=== PATIENT | female | born 1980 | race Caucasian/White ===

== ENCOUNTER → 2024-08-22 11:09 | Outpatient (REF) | payer BC, SELFPAY | LOC: WDC 11:09 | PROVIDERS: ATTENDING PHYSICIAN Advanced Practice Midwife; FAMILY PHYSICIAN Nurse Practitioner Adult Health | DX: Z12.31 Encounter for screening mammogram for malignant neoplasm of breast (principal) | CPT/HCPCS: 77063; 77067 ==

== ENCOUNTER → 2025-08-24 13:38 | Outpatient (REF) | payer BC, SELFPAY | LOC: WDC 13:38 | PROVIDERS: ATTENDING PHYSICIAN Nurse Practitioner Adult Health | DX: Z12.31 Encounter for screening mammogram for malignant neoplasm of breast (principal) | CPT/HCPCS: 77063; 77067 ==

== ENCOUNTER 2025-08-25 13:32 | Emergency (ER) | payer BC, SELFPAY ==
[2025-08-25 13:42] VITALS: BP 187/106
[2025-08-25 13:45] VITALS: BP 171/114
[2025-08-25 13:59] LABS: Hematocrit 38.9 % (37.0-47.0); Hemoglobin 12.9 g/dL (12.0-16.0); Mean Corp Hgb Conc. 33.2 g/dL (33.0-37.0); Mean Corpuscular Volume 93.5 fL (81.0-99.0); Nucleated Red Blood Cells % 0 %; Platelet Count 216 10^3/uL (130-400); Red Cell Dist. Width 14.4 % (11.5-14.5)
[2025-08-25 14:11] LABS: ALT (SGPT) 21 U/L (0-35); AST (SGOT) 31 U/L (14-36); Albumin 4.8 g/dl (3.5-5.0); Alkaline Phosphatase 60 U/L (38-126); Blood Urea Nitrogen 10 mg/dl (7-17); Calcium 8.9 mg/dl (8.4-10.2); Carbon Dioxide 23 mmol/L (22-30); Chloride 101 mmol/L (98-107); Glucose 108 mg/dl (70-99); Potassium 3.8 mmol/L (3.5-5.1); Sodium 131 mmol/L (135-145); Total Protein 7.8 g/dl (6.3-8.2); eGFR > 60.00
[2025-08-25 15:20] VITALS: BP 166/99
--- NOTE | 2025-08-25 15:20 | ED.GENMED ---
History of Present Illness
General
Chief Complaint: Blood Pressure Problem
Source: patient
Time Seen by Provider: 08/25/25 15:10
History of Present Illness
History of Present Illness:
44-year-old female past medical history of hypertension presenting to the emergency department for evaluation after noticing an area of redness to her left eye earlier today, googled what could have potentially caused it and elevated blood pressure
was noted on her Google search so she took her blood pressure and noticed it was elevated. Patient states this caused her to feel very anxious and was checking her blood pressure multiple times and noted that it continued to be significantly
elevated so decided to come to the ER for further evaluation. At present time patient states she is asymptomatic noting she does not have any headaches, visual disturbances, focal weakness or numbness, chest pain or shortness of breath, abdominal
pain nausea or vomiting. She does report good compliance with her losartan and HCTZ medications. Social history was otherwise noncontributory.
Past History
Past History
ED Past Medical History: HTN
ED Past Surgical History: None
Social History
Tobacco: Former smoker
Alcohol: None
Drug: None
Personal:
Living: with family
Review of Systems
Review of Systems
All Other Systems: ROS reviewed and negative except as documented in HPI and ROS
Phy Exam
Physical Exam
Physical Exam:
GENERAL: Alert , in no apparent distress
HEAD: Normocephalic atraumatic
EYE: Small subconjunctival hemorrhage to the left lateral portion of the eye
NECK: Supple
ENT: o/p clr, mmm.
CARDIAC: Regular rate and rhythm .
LUNGS: Clear breath sounds bilaterally, no acute respiratory distress, no wheezes/rales/rhonchi
ABDOMEN: Soft, without focal tenderness, no r/g, no cvat
NEUROLOGICAL: Alert and oriented
SKIN: Warm and dry, skin intact.
MUSCULOSKELETAL: No edema, well perfused.
PSYCH: Normal and appropriate interaction.
Scores
Heart Failure Risk
Heart Failure Risk Score: Not Applicable
Heart Score for Chest Pain Patients
STEMI patient?: Not applicable
Withdrawal Assessment of Alcohol
Withdrawal Assessment Completed?: Not applicable
Course
Orders/Labs/Results
Orders:
Orders
08/25/25 13:34
EKG [Electrocardiogram (*1)] Urgent
Reason for Study: Hypertension, Benign
EKG- Treatment ONCE
08/25/25 13:44
CT Head W/o Iv Contrast Urgent
Comment:
Reason For Exam: HTN, blurry vision
08/25/25 13:49
Complete Blood Count/With Diff Urgent
Comprehensive Metabolic Panel Urgent
Abnormal Lab Results
08/25/25
13:49
RBC 4.16 L 10^6/uL
(4.20-5.40)
Sodium 131 L mmol/L
(135-145)
Glucose 108 H mg/dl
(70-99)
08/25/25 13:49
08/25/25 13:49
Vital Signs
Initial and Last Documented VS:
Initial Vital Signs
Temp Pulse Resp BP Pulse Ox
99.0 F 81 18 187/106 100
08/25/25 13:42 08/25/25 13:42 08/25/25 13:42 08/25/25 13:42 08/25/25 13:42
Last Documented Vital Signs
Temp Pulse Resp BP Pulse Ox
99.0 F 84 18 166/99 100
08/25/25 13:42 08/25/25 15:20 08/25/25 15:20 08/25/25 15:20 08/25/25 15:21
MDM/Problems Addressed
Differential Diagnosis Includes:
Asymptomatic HTN
ACS
Renal disease
CVA
Subconjunctival hemorrhage
MDM/Problems Addressed:
44-year-old female presenting the ER after noticing a left eye subconjunctival hemorrhage and was concerned about her blood pressure. She has had multiple elevated blood pressures which prompted her to come to the ER. Patient is otherwise
asymptomatic. Labs and head CT had been ordered. Discussed with patient monitoring her blood pressure as well as will help ensure close follow-up with primary care provider. Discussed monitoring her blood pressure at home as well as signs and
symptoms to look for for endorgan dysfunction. Anticipate discharge home.
Chronic conditions affecting care: HTN
Acute Exacerbation and/or Progression of Chronic Illness: HTN
*Radiology
Radiology exam reviewed: radiology read reviewed
*Pulse Oximetry
SaO2: 100
Oxygen Mode of Delivery: Room air
Patient hypoxic: no
*EKG
Heart Rate: 81
Rate: normal
Rhythm: sinus
Ischemia: no ischemia
*Critical Care Note
Total Time (30-74mins, 75-104mins- exclusive of procedures): Not Applicable
Data Reviewed
Review of Other/Old Records Reveals: Labs, Records and Discharge Summary
Source: patient and records
Patient Management
Discussion with other providers: PCP
Escalation/DeEscalation of care consider admission/obs:
Patient's workup is unremarkable for any acute pathologies. Her blood pressure is slightly improved prior to discharge although still noted to be elevated. I did notify patient's primary care provider via [place] text, they will follow-up with the
patient in the coming days. Patient aware of return precautions to the ER.
ED Attending Note
-
Portions of this chart may have been created with voice recognition software.� Occasional wrong word or��sound alike� substitutions may have occurred due to the inherent limitations of voice recognition software.
Discharge Plan
Departure
Patient Disposition: Home (Routine Discharge)
Date of Disposition: 08/25/25
Time of Disposition: 15:20
Patient with high blood pressure during this ER visit?: Yes
Discharge Problem:
Hypertension
Instructions: High Blood Pressure (DC)
Prescriptions:
No Action
prenat.vits,hamlet,[id number] [ Vitamin] 1 TAB tablet
1 tab PO
Interventions
Interventions:
*General Assessment Last Done: 08/25/25 13:41
*Neglect/Abuse Screening Last Done: 08/25/25 13:41
*ED COVID-19 Vaccine History Last Done: 08/25/25 13:41
*ED Influenza Vaccine History Last Done: 08/25/25 13:41
*Risk Screen - Suicide (C-SSRS) Last Done: 08/25/25 13:41
*Nursing Disposition Last Done: 08/25/25 15:26
ED- Cardiac Assessment Last Done: 08/25/25 15:20
ED- Neurological Assessment Last Done: 08/25/25 15:20
ED- Pulmonary Assessment Last Done: 08/25/25 15:20
Discharge Date and Time
Discharge Date/Time: 08/25/25 15:27
Print Language: BELARUSIAN
== END 2025-08-25 15:27 | disposition home or self-care (01) ==
LOC: EMR 13:32
PROVIDERS: Physician Assistant Medical; EMERGENCY PHYSICIAN Emergency Medicine; FAMILY PHYSICIAN Nurse Practitioner Adult Health
DX: I10 Essential (primary) hypertension (principal); Z87.891 Personal history of nicotine dependence
CPT/HCPCS: 99284; 70450; 80053; 85025; 93005